=== PATIENT | female | born 1985 | race Caucasian/White ===

== ENCOUNTER → 2018-09-23 | Outpatient (CLI) | payer OTHER ==
--- NOTE | 2018-09-26 04:47 | MR ---
MR scan of the right forearm. History swelling and pain. Dog bite. Comparison none. TECHNIQUE: Multiplanar multiecho imaging of the right forearm was performed without contrast. FINDINGS: There is a marker placed over the posterior mid ulna in the area of the dogbite. I see no pathologic fluid collection. Muscle bundles have normal signal pattern. There is no evidence of any significant muscle edema. I see no pathologic fluid collection. The radius and ulna appear intact. There is mini mal subcutaneous increased signal on the T2 images consistent with mild edema that is slightly distal to the marker. IMPRESSION: Negative MR scan of the right forearm. No fracture. No evidence of any significant soft tissue injury . Minimal subcutaneous edema in the mid forearm posteriorly.
== END ==
LOC: RADMRIMAIN 16:04
PROVIDERS: ATTEND Family Medicine
DX: M79.631 Pain in right forearm (principal); S51.851A Open bite of right forearm, initial encounter

== ENCOUNTER → 2020-09-27 | Outpatient (CLI) | payer OTHER | END | disposition home or self-care (01) | LOC: LABWHC1 07:05 | PROVIDERS: ATTEND Radiology Diagnostic Radiology | DX: Z01.812 Encounter for preprocedural laboratory examination (principal) | CPT/HCPCS: 36415; 82565; 84520 ==

== ENCOUNTER → 2021-08-27 | Outpatient (CLI) | payer BC ==
--- NOTE | 2021-08-28 11:37 | MM ---
Reason for exam: screening (asymptomatic). Baseline mammogram. History: Family history of breast cancer in maternal aunt at age 40. Physical Findings: A clinical breast exam by your physician is recommended on an annual basis and results should be correlated with mammographic findings. MG 3D Screening Mammo W/Cad Bilateral CC and MLO view(s) were taken. The breast tissue is heterogeneously dense. This may lower the sensitivity of mammography. There is no discrete abnormality. ASSESSMENT: Negative, BI-RAD 1 RECOMMENDATION: Routine screening mammogram of both breasts in 1 year.
== END | disposition home or self-care (01) ==
LOC: RADMAMWWP 08:40
PROVIDERS: ATTEND Obstetrics & Gynecology
DX: Z12.31 Encounter for screening mammogram for malignant neoplasm of breast (principal); Z80.3 Family history of malignant neoplasm of breast
CPT/HCPCS: 77063; 77067